=== PATIENT | male | born 1970 | race Caucasian/White ===

== ENCOUNTER 2016-12-21 12:50 | Emergency (ER) | payer BC ==
[2016-12-21 12:58] VITALS: TEMP 98.1; BMI 34.8
[2016-12-21] MEDS ORDERED: KETOROLAC TROMETHAMINE 60 MG/2 ML VIAL IM ONE (13:42)
[2016-12-21] MEDS ORDERED: hydrOXYzine PAMOATE 50 MG CAPSULE (FP) PO ONE (13:43)
--- NOTE | 2016-12-21 13:43 | PDOC ---
History of Present Illness - General Chief Complaint: Back Pain Stated Complaint: BACK PAIN Time Seen by Provider: 12/21/16 13:31 - History of Present Illness Initial Comments: 12/21/16 18:15 Chief complaint: Back pain History of present illness: The patient was getting out of his car several days ago, felt a twinge in his right lower back. Progressively developed pain and stiffness which began to radiate to the posterior thigh and calf and into the lateral and plantar surfaces of his foot. There is slight tingling of the foot as well. Review of systems: Denies fever/chills URI symptoms, sore throat, cough, chest pain, shortness of breath, abdominal pain, urinary or fecal incontinence or retention, visual or focal neurologic symptoms other than in the right leg. Past medical history: No history of back problems, back injury, or sciatica. Otherwise noncontributory Social history: Patient works as an electrician's assistant, undertakes frequent bending and lifting and contorting his body. He denies tobacco alcohol or nonprescription drugs. Family history: Reviewed and noncontributory Physical exam: Alert and oriented 3, well-developed well-nourished, mild distress due to pain and stiffness in the right lower back Afebrile, vital signs normal Head atraumatic. PERRLA, fundi benign, ENT clear Supple without bruit mass or nodes. No cervical spine tenderness or deformity Lungs clear to P&A CV regular without murmur or gallop Abdomen benign No CVAT Lumbar spine without point tenderness or deformity over the vertebral bodies. No appreciable loss of lumbar lordosis or spasm. The area of pain seems to be confined to the right sacral region. Neurological C2 to 12 intact. No demonstrable focal sensory or motor deficits. Gait is adequately maintained. Straight leg raising on the affected side is negative, despite the description of symptoms. No posterior calf swelling or tenderness. No skin rash Impression: Low back strain, possible nerve impingement, possible disc disease Plan: Symptomatic treatment and follow-up if no improvement back specialist. Rest but to maintain mobility, avoid sitting. Past History - Past Medical History Allergies/Adverse Reactions: Allergies Allergy/AdvReac Type Severity Reaction Status Date / Time Penicillins Allergy Verified 12/21/16 12:54 Home Medications: Ambulatory Orders Solis Flavor [Solis Concentrate] 0 ml PO DAILY 12/21/16 Cranberry Fruit Extract [Cranberry Extract] 0 gm MC DAILY 12/21/16 Cyclobenzaprine HCl [Flexeril 10 mg] 10 mg PO BID PRN 12/21/16 Hydroxyzine Pamoate [Vistaril -] 25 mg PO TID #15 capsule 12/21/16 Ketorolac Tromethamine [Toradol] 10 mg PO Q6H #20 tablet 12/21/16 Turmeric Root Extract [Turmeric] 0 mg PO ASDIR 12/21/16 Other medical history: back pain - Psycho/Social/Smoking Cessation Hx Suicidal Ideation: No Smoking History: Current every day smoker Number of Cigarettes Smoked Daily: 10 Information on smoking cessation initiated: No Hx Alcohol Use: Yes (occasionally) Drug/Substance Use Hx: No Substance Use Type: None *Physical Exam - Vital Signs Last Vital Signs Temp Pulse Resp BP Pulse Ox 98.1 F 92 H 18 157/109 100 12/21/16 12:54 12/21/16 12:54 12/21/16 12:54 12/21/16 12:54 12/21/16 12:54 Medical Decision Making - Medical Decision Making 12/21/16 18:20 Pain and stiffness much improved after medication. The patient is ambulating with much less difficulty and with less stiffness. Discharged in the company of his , with instructions on back care, prescriptions for medications, and follow-up with Dr. ruby *DC/Admit/Observation/Transfer Diagnosis at time of Disposition: Sciatica Qualifiers: Laterality: right Qualified Code(s): M54.31 - Sciatica, right side - Discharge Dispostion Disposition: HOME Condition at time of disposition: Stable Admit: No - Prescriptions Prescriptions: Ketorolac Tromethamine [Toradol] 10 mg PO Q6H #20 tablet Hydroxyzine Pamoate [Vistaril -] 25 mg PO TID #15 capsule - Referrals Referrals: Mario Alberto Ruby MD [Staff Physician] - 1 week - Patient Instructions Printed Discharge Instructions: DI for Back Pain With Sciatica Additional Instructions: Rest, avoid sitting, avoid bending and lifting, avoid carrying heavy bags or boxes. Medication as directed See back specialist if symptoms are not improved one week. Use heat to relax the muscles, may use ice if it provides symptomatic relief as well. - Post Discharge Activity Work/School Note: Back to Work
[2016-12-21] MEDS ORDERED: KETOROLAC TROMETHAMINE 60 MG/2 ML VIAL ONE (14:04)
[2016-12-21] MEDS ORDERED: hydrOXYzine PAMOATE 25 MG CAPSULE (FP) PO ONE (14:04)
[2016-12-21 15:18] VITALS: BP 137/97; PULSE 80
== END 2016-12-21 15:08 | disposition home or self-care (01) ==
LOC: FER 12:50
PROC: 3E0233Z Introduction of Anti-inflammatory into Muscle, Percutaneous Approach (ICD-10-PCS; principal; 2016-12-21)
DX: M54.31 Sciatica, right side (principal); F17.210 Nicotine dependence, cigarettes, uncomplicated
CPT/HCPCS: 99282-25